=== PATIENT | male | born 1985 | race Caucasian/White ===

== ENCOUNTER 2017-11-02 07:35 | Emergency (ER) | payer SELFPAY ==
[~2017-11-02] VITALS: Ht 170.2 cm; Wt 90.0 kg
[2017-11-02 07:53] VITALS: BP 132/85
== END 2017-11-02 08:01 | disposition left against medical advice (07) ==
LOC: ER 08:00
DX: M54.9 Dorsalgia, unspecified (principal); F15.10 Other stimulant abuse, uncomplicated; B19.20 Unspecified viral hepatitis C without hepatic coma; Z53.21 Procedure and treatment not carried out due to patient leaving prior to being seen by health care provider
CPT/HCPCS: 99283